=== PATIENT | male | born 1990 ===

== ENCOUNTER 2017-12-22 18:06 | Emergency (ER) | payer OTHER ==
[2017-12-22 18:19] VITALS: RESP 18; TEMP 98.2; O2SAT 100; BMI 22.1
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
[2017-12-22 20:57] VITALS: BP 140/70; PULSE 58
--- NOTE | 2017-12-23 09:32 | CT ---
PROCEDURE: CT HEAD WITHOUT CONTRAST. HISTORY: headache COMPARISON: None available. TECHNIQUE: Axial computed tomography images were obtained through the head/brain without intravenous contrast. Radiation dose: Total exam DLP = 985 mGy-cm. This CT exam was performed using one or more of the following dose reduction techniques: Automated exposure control, adjustment of the mA and/or kV according to patient size, and/or use of iterative reconstruction technique. FINDINGS: HEMORRHAGE: No intracranial hemorrhage. BRAIN: No mass effect or edema. No atrophy or chronic microvascular ischemic changes. VENTRICLES: Unremarkable. No hydrocephalus. CALVARIUM: Unremarkable. PARANASAL SINUSES: Unremarkable as visualized. No significant inflammatory changes. MASTOID AIR CELLS: Unremarkable as visualized. No inflammatory changes. OTHER FINDINGS: None. IMPRESSION: No acute findings
== END 2017-12-22 20:56 | disposition home or self-care (01) ==
LOC: ED 18:06
DX: M54.2 Cervicalgia (principal); M54.9 Dorsalgia, unspecified; V43.62XA Car passenger injured in collision with other type car in traffic accident, initial encounter; Y92.410 Unspecified street and highway as the place of occurrence of the external cause